=== PATIENT | female | born 1940 | race Caucasian/White ===

== ENCOUNTER → 2016-07-10 | Outpatient (CLI) | payer MEDICARE ==
[2016-07-10 13:17] LABS: BACTERIA, URINE RARE /hpf; BLOOD, URINE NEG (NEG); GLUCOSE,URINE NEG (NEG); KETONE, URINE NEG (NEG); NITRITE,URINE NEG (NEG); URINE COLOR YELLOW (YELLW/STRAW)
[2016-07-10 13:24] LABS: COMMENT (UR) CULT NOT INDICATED; CULTURE IF INDICATED CULT NOT INDICATED
[2016-07-10 13:26] LABS: ANION GAP 5 MEQ/L (5-15); AST (GOT) 13 U/L (15-37); BICARBONATE 30.2 MEQ/L (21.0-32.0); BLOOD UREA NITROGEN 22 MG/DL (7-18); CHLORIDE 107 MEQ/L (98-107); GLOMERULAR FILTRATION RATE 45 ML/MIN (>89); GLUCOSE,FASTING 84 MG/DL (74-99); POTASSIUM 4.1 MEQ/L (3.5-5.1); SODIUM (NA) 142 MEQ/L (136-145)
[2016-07-10 13:36] LABS: ALKALINE PHOSPHATASE 64 U/L (45-117); ALT (GPT) 15 U/L (10-53); FREE T4 1.33 NG/DL (0.76-1.46); HDL CHOLESTEROL 62.4 MG/DL (40.0-60.0); LDL CHOLESTEROL 68 MG/DL (0-99); TOTAL BILIRUBIN ADULT 0.8 MG/DL (0.2-1.0)
== END ==
LOC: PLAB 10:22
PROVIDERS: ATTEND Family Medicine
DX: E78.5 Hyperlipidemia, unspecified (principal); E03.9 Hypothyroidism, unspecified; E55.9 Vitamin D deficiency, unspecified; I10 Essential (primary) hypertension
CPT/HCPCS: 36415; 80053; 80061; 81001; 82306; 84439; 84443

== ENCOUNTER → 2016-07-21 | Outpatient (CLI) | payer MEDICARE | LOC: PLAB 11:27 | PROVIDERS: ATTEND Internal Medicine Interventional Cardiology | DX: I10 Essential (primary) hypertension (principal) | CPT/HCPCS: 36415; 82565; 84132; 84295; 84520 ==

== ENCOUNTER → 2016-10-15 | Outpatient (CLI) | payer MEDICARE ==
[2016-10-15 16:20] LABS: POTASSIUM 4.9 MEQ/L (3.5-5.1)
== END ==
LOC: PLAB 12:24
PROVIDERS: ATTEND Internal Medicine Interventional Cardiology
DX: I10 Essential (primary) hypertension (principal)
CPT/HCPCS: 36415; 82565; 84132; 84295; 84520

== ENCOUNTER 2017-04-10 11:19 | Emergency (ER) | payer MEDICARE ==
[~2017-04-10] VITALS: Ht 154.9 cm; Wt 58.1 kg
[2017-04-10 11:22] VITALS: BP 128/59; PULSE 56; RESP 16; TEMP 98.4; O2SAT 97
[2017-04-10] MEDS ORDERED: SIMV20TA PO (11:43)
[2017-04-10] MEDS ORDERED: METO25TA3 PO (11:43)
[2017-04-10] MEDS ORDERED: LEVO75TA3 PO (11:43)
[2017-04-10] MEDS ORDERED: SIMV40TA PO (11:43)
[2017-04-10] MEDS ORDERED: LOSA50TA PO (11:43)
--- NOTE | 2017-04-10 12:31 | RADRPT ---
EXAM DATE/TIME: 04/10/2017 12:04 [facility] COMPARISON: No previous studies available for comparison. INDICATIONS : Fell down stairs yesterday, pain in entire right foot and ankle, especially medial side MEDICAL HISTORY : None. SURGICAL HISTORY : None. ENCOUNTER: Initial ACUITY: 2 days PAIN SCORE: 10/10 LOCATION: Right foot/ankle FINDINGS: AP, lateral and oblique views of the ankle were obtained and demonstrate a small avulsion fracture of f the distal lateral malleolus measuring 4 x 1 mm in diameter. This is distracted approximately 5 mm. There is extensive soft tissue swelling. The ankle mortise is intact. There is a small spur off the inferior calcaneus. CONCLUSION: 1. Small avulsion fracture off the distal lateral malleolus with soft tissue swelling. Eric Hdez MD on April 10, 2017 at 12:29 Board Certified Radiologist. This report was verified electronically.
--- NOTE | 2017-04-10 12:33 | RADRPT ---
EXAM DATE/TIME: 04/10/2017 12:04 [facility] COMPARISON: No previous studies available for comparison. INDICATIONS : Fell down stairs yesterday, pain in entire right foot and ankle, especially medial side MEDICAL HISTORY : None. SURGICAL HISTORY : None. ENCOUNTER: Initial ACUITY: 2 days PAIN SCORE: 10/10 LOCATION: Right foot/ankle FINDINGS: AP, lateral and oblique views the right foot were obtained and demonstrate degenerative change of the first metatarsal phalangeal joint with joint space loss, sclerosis and spurring. There is remodeling with flattening of the metatarsal head. There are mild degenerative changes in the interphalangeal j oints, metatarsal tarsal joints and intertarsal joints. There is a small spur off the inferior calcan eus. There is osteopenia. There is no acute fracture or malalignment. CONCLUSION: 1. No acute fracture or malalignment. 2. 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 Eric Hdez MD on April 10, 2017 at 12:30 Board Certified Radiologist. This report was verified electronically.
--- NOTE | 2017-04-10 13:15 | PD ---
HPI Chief Complaint: Fall Time Seen by Provider: 11:57 Travel History International Travel<30 days: No Contact w/Intl Traveler<30days: No Traveled to known affect area: No History of Present Illness HPI 76 old female here with right ankle and foot pain status post trip and fall yesterday. She denies head injury or loss of consciousness. She reports pain with weightbearing. Pain is relieved with rest. She denies headache, neck pain , chest pain, abdominal pain, paresthesias or weakness of the extremities. PFSH Past Medical History Hypertension: Yes Thyroid Disease: Yes Tetanus Vaccination: < 5 Years Influenza Vaccination: Yes ?: Not Past Surgical History Appendectomy: Yes Cardiac Surgery: Yes Coronary Artery Bypass Graft: Yes Hysterectomy: Yes Valve Replacement: Yes (mitral) Social History Alcohol Use: Yes (occ) Tobacco Use: No Substance Use: No Allergies-Medications (Allergen,Severity, Reaction): Coded Allergies: No Known Allergies (Unverified , 04/10/17) Reported Meds & Prescriptions Reported Meds & Active Scripts Active Reported Simvastatin 40 Mg Tab 40 Mg PO HS Simvastatin 20 Mg Tab 20 Mg PO DAILY Levothyroxine (Levothyroxine Sodium) 75 Mcg Tab 75 Mcg PO DAILY Metoprolol Tartrate 25 Mg Tab 25 Mg PO BID Losartan (Losartan Potassium) 50 Mg Tab 50 Mg PO BID Review of Systems Except as stated in HPI: all other systems reviewed are Neg Physical Exam Narrative GENERAL: Well-nourished, well-developed patient. SKIN: Focused skin assessment warm/dry. HEAD: Normocephalic. Atraumatic EYES: No scleral icterus. No injection or drainage. NECK: Supple, trachea midline. No JVD or lymphadenopathy. No cervical midline tenderness CARDIOVASCULAR: Regular rate and rhythm without murmurs, gallops, or rubs. RESPIRATORY: Breath sounds equal bilaterally. No accessory muscle use. GASTROINTESTINAL: Abdomen soft, non-tender, nondistended. MUSCULOSKELETAL: No cyanosis, or edema. Right lower extremity: Notable swelling and ecchymosis to the ankle and foot. No deformity. Tenderness over the lateral and medial malleolus. 2+ distal pulses. Normal sensation. Brisk cap refill. BACK: Nontender without obvious deformity. No CVA tenderness. Data Data Last Documented VS Vital Signs Date Time Temp Pulse Resp B/P (MAP) Pulse Ox O2 Delivery O2 Flow Rate FiO2 04/10/17 11:22 98.4 56 16 128/59 (82 97 Orders Orders Ankle, Complete ([id number]) (04/10/17 ) Foot, Complete ([id number]) (04/10/17 ) Splint Or Brace Apply/Monitor (04/10/17 12:41) [facility] Medical Decision Making Medical Screen Exam Complete: Yes Emergency Medical Condition: Yes Differential Diagnosis Ankle fracture versus metatarsal fracture versus ankle sprain Narrative Course 76 old female here with right ankle and foot pain status post fall yesterday. She denies head injury or loss of consciousness. She reports pain with weightbearing. Pain is relieved with rest. On exam she has moderate ankle swelling and ecchymosis. She has tenderness over the medial and lateral malleolus. The extremity is neurovascular intact. X-ray show a small avulsion fracture to the lateral malleolus. Patient is put in a posterior short-leg splint. She is instructed to follow-up with with her. Diagnosis Primary Impression: Avulsion fracture of lateral malleolus of right fibula Qualified Codes: S82.61XA - Displaced fracture of lateral malleolus of right fibula, initial encounter for closed fracture Referrals: Orthopedist Additional Instructions: Keep the splint in place until follow-up with [facility]. Take [id number] Tylenol or Motrin as needed for pain. Ice and elevate the extremity. Return to the emergency department if he developed new or worsening symptoms Disposition: 01 DISCHARGE HOME Condition: Stable Yane Henriquez Apr 10, 2017 13:15
== END 2017-04-10 13:36 | disposition home or self-care (01) ==
LOC: PHEFT 11:19
DX: S82.61XA Displaced fracture of lateral malleolus of right fibula, initial encounter for closed fracture (principal); W01.0XXA Fall on same level from slipping, tripping and stumbling without subsequent striking against object, initial encounter
CPT/HCPCS: 29515; 73610; 73630